=== PATIENT | male | born 1955 | race Hispanic/Latino ===

== ENCOUNTER 2018-01-29 10:03 | Observation (INO) | payer BC ==
[~2018-01-29] VITALS: Ht 172.7 cm; Wt 69.9 kg
[2018-01-29 11:44] LABS: BASOPHILS % 0.2 % (0.0-1.0); HEMATOCRIT 42.1 % (38.2-49.6); HEMOGLOBIN 13.4 g/dL (14.0-18.0); LYMPHOCYTES # (AUTO) 0.6 (1.0-3.2); LYMPHOCYTES % 3.5 % (18.0-39.1); MEAN CORPUSCULAR HEMOGLOBIN 21.4 pg (28-32); MEAN CORPUSCULAR HGB CONC 31.8 g/dL (31-35); MEAN CORPUSCULAR VOLUME 67.1 fL (81-99); MONOCYTES # (AUTO) 0.5 (0.2-0.8); MONOCYTES % 2.8 % (4.4-11.3); NEUTROPHILS # (AUTO) 16.4 (2.1-6.9); PLATELET COUNT 338 x10e3/uL (140-360); RED BLOOD COUNT 6.27 x10e6/uL (4.3-5.7); RED CELL DISTRIBUTION WIDTH 17.5 % (11.7-14.4)
[2018-01-29 11:47] LABS: INR 0.92; PARTIAL THROMBOPLASTIN TIME 25.6 seconds (23.8-35.5); PROTHROMBIN TIME 13.2 seconds (11.9-14.5)
[2018-01-29 11:53] LABS: CLARITY,URINE CLEAR (CLEAR); COLOR,URINE YELLOW (YELLOW)
[2018-01-29 11:54] LABS: KETONES,URINE NEGATIVE (NEGATIVE); LEUKOCYTE ESTERASE ,URINE NEGATIVE (NEGATIVE); NITRITE,URINE NEGATIVE (NEGATIVE); PROTEIN,URINE DIPSTICK 1+ (NEGATIVE); URINE UROBILINOGEN 0.2 mg/dL (0.2 - 1)
[2018-01-29 11:55] LABS: BILIRUBIN,URINE NEGATIVE (NEGATIVE)
[2018-01-29 11:56] LABS: ALANINE AMINOTRANSFERASE 13 IU/L (0-55); ALBUMIN 4.3 g/dL (3.5-5.0); ALBUMIN/GLOBULIN RATIO 1.3 (0.8-2.0); ALKALINE PHOSPHATASE 73 IU/L (40-150); AMYLASE 51 U/L (25-125); ANION GAP 15.7 mmol/L (8-16); BLOOD UREA NITROGEN 14 mg/dL (7-26); BUN/CREATININE RATIO 14 (6-25); CALCIUM 9.3 mg/dL (8.4-10.2); CARBON DIOXIDE 23 mmol/L (22-29); CHLORIDE 102 mmol/L (98-107); CREATINE KINASE 101 IU/L (30-200); CREATININE, SERUM 0.99 mg/dL (0.72-1.25); EST GLOMERULAR FILTRATION RATE > 60 ML/MIN (60-); GLUCOSE 152 mg/dL (74-118); LIPASE 10 U/L (8-78); MAGNESIUM 2.2 MG/DL (1.3-2.1); POTASSIUM 3.7 mmol/L (3.5-5.1); SODIUM 137 mmol/L (136-145)
[2018-01-29 12:00] LABS: BACTERIA,URINE RARE /HPF; EPITHELIAL CELLS,URINE RARE /LPF; RBC,URINE 0-5 /HPF (0-5); WBC,URINE (MAN) 0-5 /HPF (0-5)
[2018-01-29 12:01] LABS: YEAST,URINE RARE
--- NOTE | 2018-01-29 14:07 | Diagnostic Imaging Report ---
Two frontal view of the chest. HISTORY: Abdominal pain COMPARISON: None available. DISCUSSION: Portable technique, limits sensitivity of the exam. The left costophrenic angle is not entirely included. Overlying monitoring leads. Tubes/Lines: None Lungs and pleura: The lungs appear well inflated. No evidence of a consolidative pneumonia or pulmonary alveolar edema. No definite pleural effusion or pneumothorax is identified. Heart and mediastinum: The cardiac silhouette appears unremarkable. Mild prominence of the central pulmonary, likely accentuated by positioning. Bones: No acute osseous lesion is identified, given this limited exam. IMPRESSION: No acute radiographic abnormality, when allowing for the technique. Signed by: Dr. Stewart Solis D.O., M.M.M. on 01/29/2018 2:03 PM
[2018-01-29] MEDS ORDERED: SODIUM CHLORIDE 0.9% 50ML 50 ML ONE (16:09)
[2018-01-29] MEDS ORDERED: IOPAMIDOL 370 MG/ML 200 ML INFUS..BTL INJ ONE (16:09)
--- NOTE | 2018-01-29 17:40 | Diagnostic Imaging Report ---
ADDENDUM #1 EXAM: CT of the abdomen and pelvis WITH contrast HISTORY: Abdominal pain, additional history provided of pain since 5:00 AM this morning with an elevated white blood cell count and left shift COMPARISON: None. TECHNIQUE: The abdomen and pelvis were scanned utilizing a multidetector helical scanner. Coronal and sagittal reformats are provided. PROTOCOL: Routine IV CONTRAST: 100 cc of Isovue-370. ORAL CONTRAST: Water RADIATION DOSE: Total DLP: 314.78 mGy*cm Estimated effective dose: (DLP x 0.015 x size factor) Dose modulation, iterative reconstruction, and/or weight based adjustment of the mA/kV was utilized to reduce the radiation dose to as low as reasonably achievable. COMPLICATIONS: None FINDINGS: LOWER THORAX: Moderate cardiomegaly. Mild bilateral dependent atelectasis. HEPATOBILIARY: No focal hepatic lesions. No biliary ductal dilatation. The gallbladder is unremarkable. SPLEEN: No splenomegaly. PANCREAS: No focal masses or ductal dilatation. ADRENALS: No discrete adrenal nodule. KIDNEYS/URETERS: No hydronephrosis, stones, or solid mass lesions. PELVIC ORGANS/BLADDER: The urinary bladder is partially decompressed. PERITONEUM / RETROPERITONEUM: No free air or fluid. LYMPH NODES: No pathologically enlarged lymph node. VESSELS: Scattered atherosclerotic vascular calcifications, including the coronary arteries. GI TRACT: No distention or wall thickening identified. A 1.2 cm calcific density near the base of the appendix. No enlargement of the appendix or surrounding inflammatory changes. BONES: No aggressive osseous lesion or acute fracture. SOFT TISSUES: Unremarkable. IMPRESSION: 1. Appendicolith at the base of the appendix, but no enlargement of the appendix or surrounding inflammatory changes. In the appropriate setting, early appendicitis may still be a consideration. 2. No acute CT intra-abdominal or intrapelvic abnormality. 3. Moderate cardiomegaly. Discussed with Dr. Yu via phone on January 29, 2018 at 1740. Signed by: Dr. Stewart Solis D.O., M.M.M. on 01/29/2018 5:59 PM ORIGINAL REPORT EXAM: CT of the abdomen and pelvis WITH contrast HISTORY: Abdominal pain COMPARISON: None. TECHNIQUE: The abdomen and pelvis were scanned utilizing a multidetector helical scanner. Coronal and sagittal reformats are provided. PROTOCOL: Routine IV CONTRAST: 100 cc of Isovue-370. ORAL CONTRAST: Water RADIATION DOSE: Total DLP: 314.78 mGy*cm Estimated effective dose: (DLP x 0.015 x size factor) Dose modulation, iterative reconstruction, and/or weight based adjustment of the mA/kV was utilized to reduce the radiation dose to as low as reasonably achievable. COMPLICATIONS: None FINDINGS: LOWER THORAX: Moderate cardiomegaly. Mild bilateral dependent atelectasis. HEPATOBILIARY: No focal hepatic lesions. No biliary ductal dilatation. The gallbladder is unremarkable. SPLEEN: No splenomegaly. PANCREAS: No focal masses or ductal dilatation. ADRENALS: No discrete adrenal nodule. KIDNEYS/URETERS: No hydronephrosis, stones, or solid mass lesions. PELVIC ORGANS/BLADDER: The urinary bladder is partially decompressed. PERITONEUM / RETROPERITONEUM: No free air or fluid. LYMPH NODES: No pathologically enlarged lymph node. VESSELS: Scattered atherosclerotic vascular calcifications, including the coronary arteries. GI TRACT: No distention or wall thickening identified. A 1.2 cm calcific density near the base of the appendix. No enlargement of the appendix or surrounding inflammatory changes. BONES: No aggressive osseous lesion or acute fracture. SOFT TISSUES: Unremarkable. IMPRESSION: 1. Appendicolith at the base of the appendix, but no enlargement of the appendix or surrounding inflammatory changes. 2. No acute CT intra-abdominal or intrapelvic abnormality. 3. Moderate cardiomegaly. Signed by: Dr. Stewart Solis D.O., M.M.M. on 01/29/2018 5:37 PM
[2018-01-29] MEDS ORDERED: MORPHINE SULFATE 2 MG/ML SYR IV PRN (18:30)
[2018-01-29] MEDS ORDERED: DEXTROSE 50% SYRINGE 50 ML IV PRN (18:30)
--- OUTSIDE RECORDS SUMMARY | 2018-01-29 18:49 | XMS REPORT ---
[facility] Address Unknown Phone Unavailable Care Team Providers Care Charter Coordinator Name Role Phone Linda PULIDO Unavailable Unavailable Problems This patient has no known problems. Allergies, Adverse Reactions, Alerts This patient has no known allergies or adverse reactions. Medications This patient has no known medications. 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 TECHNIQUE: The abdomen and pelvis were scanned utilizing a multidetector helical scanner. Coronal and sagittal reformats are provided. PROTOCOL: Routine IV CONTRAST: 100 cc of Isovue-370. ORAL CONTRAST: Water RADIATION DOSE: Total DLP: 314.78 mGy*cm Estimated effective dose: (DLP x 0.015 x size factor) Dose modulation, iterative reconstruction, and/or weight based adjustment of the mA/kV was utilized to reduce the radiation dose to as low as reasonably achievable. COMPLICATIONS: None FINDINGS: LOWER THORAX: Moderate cardiomegaly. Mild bilateral dependent atelectasis. HEPATOBILIARY: No focal hepatic lesions. No biliary ductal dilatation. The gallbladder is unremarkable. SPLEEN: No splenomegaly. PANCREAS: No focal masses or ductal dilatation. ADRENALS: No discrete adrenal nodule. KIDNEYS/URETERS: No hydronephrosis, stones, or solid mass lesions. PELVIC ORGANS/BLADDER: The urinary bladder is partially decompressed. PERITONEUM / RETROPERITONEUM: No free air or fluid. LYMPH NODES: No pathologically enlarged lymph node. VESS ELS: Scattered atherosclerotic vascular calcifications, including the coronary arteries. GI TRACT: No distention or wall thickening identified. A 1.2 cm calcific density near the base of the appendix. No enlargement of the appendix or surrounding inflammatory changes. BONES: No aggressive osseous lesion or acute fracture. SOFT TISSUES: Unremarkable. IMPRESSION: 1. Appendicolith at the base of the appendix, but no enlargement of the appendix or surrounding inflammatory changes. In the appropriate setting, early appendicitis may still be a consideration. 2. No acute CT intra- abdominal or intrapelvic abnormality. 3. Moderate cardiomegaly. Discussed with Dr. Pulido via phone on January 29, 2018 at 1740. Signed by: Dr. Candida Solis D.O., M.M.M. on 01/29/2018 5:59 PM ORIGINAL REPORT EXAM: CT of the abdomen and pelvis WITH contrast HISTORY: Abdominal pain COMPARISON: None. TECHNIQUE: The abdomen and pelvis were scanned utilizing a multidetector helical scanner. Coronal and sagittal reformats are provided. PROTOCOL: Routine IV CONTRAST: 100 cc of Isovue-370. ORAL CONTRAST: Water RADIATION DOSE: Total DLP: 314.78 mGy*cm Estimated effective dose: (DLP x 0.015 x size factor) Dose modulation, iterative reconstruction, and/or weight based adjustment of the mA/kV was utilized to reduce the radiation dose to as low as reasonably achievable. COMPLICATIONS: None FINDINGS: LOWER THORAX: Moderate c ardiomegaly. Mild bilateral dependent atelectasis. HEPATOBILIARY: No focal hepatic lesions. No biliary ductal dilatation. The gallbladder is unremarkable. SPLEEN: No splenomegaly. PANCREAS: No focal masses or ductal dilatation. ADRENALS: No discrete adrenal nodule. KIDNEYS/URETERS: No hydronephrosis, stones, or solid mass lesions. PELVIC ORGANS/BLADDER: The urinary bladder is partially decompressed. PERITONEUM / RETROPERITONEUM: No free air or fluid. LYMPH NODES: No pathologically enlarged lymph node. VESSELS: Scattered atherosclerotic vascular calcifications, including the coronary arteries. GI TRACT: No distention or wall thickening identified. A 1.2 cm calcific density near the base of the appendix. No enlargement of the appendix or surrounding inflammatory changes. BONES: No aggressive osseous lesion or acute fracture. SOFT TISSUES: Unremarkable. IMPRESSION: 1. Appendicolith at the base of the appendix, but no enlargement of the appendix or surrounding inflammatory changes. 2. No acute CT intra-abdominal or intrapelvic abnormality. 3. Moderate cardiomegaly. Signed by: Dr. Candida Solis D.O., M.M.M. on 01/29/2018 5:37 PM Dictated By: CANDIDA SOLIS DO [id number] Transcribed By: YOLANDA on 01/29/18 [id number] COPY TO: NIA MACIAS NP CHEST SINGLE (PORTABLE) 2018-01-29 14:00:00 [place] [address] Patient Name: MEHREEN KILGORE MR #: [id number] : 1955 Age/Sex: 63/M Req #: [id number] Adm Physician: Ordered by: NIA MACIAS NP Report #: [id number] Location: Room/Bed: Procedure: [id number] DX/CHEST SINGLE (PORTABLE) Exam Date: 01/29/18 Exam Time: 1120 REPORT STATUS: Signed Two frontal view of the chest. HISTORY: Abdominal pain COMPARISON: None available. DISCUSSION: Portable technique, limits sensitivity of the exam. The left costophrenic angle is not entirely included. Overlying monitoring leads. Tubes/Lines: None Lungs and pleura: The lungs appear well inflated. No evidence of a consolidative pneumonia or pulmonary alveolar edema. No definite pleural effusion or pneumo thorax is identified. Heart and mediastinum: The cardiac silhouette appears unremarkable. Mild prominence of the central pulmonary, likely accentuated by positioning. Bones: No acute osseous lesion is identified, given this limited exam. IMPRESSION: No acute radiographic abnormality, when allowing for the technique. Signed by: Dr. Candida Solis D.O., M.M.M. on 01/29/2018 2:03 PM Dictated By: CANDIDA SOLIS DO 02 Transcribed By: YOLANDA on 01/29/181402 COPY TO: NIA MACIAS NP
[2018-01-29] MEDS: PIPER-TAZ 3.375 GM 50 ML IV SCH (19:41)
[2018-01-29] MEDS: SODIUM CHLORIDE 0.9% 1000ML 1,000 ML IV SCH ×2 (19:41→23:02)
[2018-01-29 20:43] VITALS: BP 141/69
[2018-01-29 20:45] VITALS: BP 141/69
[2018-01-29] MEDS: INSULIN REGULAR, HUMAN 100 UNIT/1 ML 3ML VIAL SQ SCH (21:00)
[2018-01-29] MEDS ORDERED: PIPER-TAZ 3.375 GM / NS 50ML IV SCH (22:00)
[2018-01-29 23:07] VITALS: BP 141/69
[2018-01-30 00:12] VITALS: BP 132/74
[2018-01-30 04:37] VITALS: BP 137/74
[2018-01-30] MEDS: PIPER-TAZ 3.375 GM 50 ML IV SCH ×3 (05:00→20:50)
[2018-01-30 05:38] LABS: BASOPHILS % 0.2 % (0.0-1.0); EOSINOPHILS % 0.1 % (0.0-6.0); HEMATOCRIT 40.1 % (38.2-49.6); HEMOGLOBIN 12.8 g/dL (14.0-18.0); LYMPHOCYTES # (AUTO) 2.2 (1.0-3.2); LYMPHOCYTES % 15.7 % (18.0-39.1); MEAN CORPUSCULAR HEMOGLOBIN 21.2 pg (28-32); MEAN CORPUSCULAR HGB CONC 31.9 g/dL (31-35); MEAN CORPUSCULAR VOLUME 66.5 fL (81-99); MONOCYTES # (AUTO) 1.2 (0.2-0.8); MONOCYTES % 8.8 % (4.4-11.3); NEUTROPHILS # (AUTO) 10.4 (2.1-6.9); NEUTROPHILS % 74.8 % (38.7-80.0); PLATELET COUNT 326 x10e3/uL (140-360); RED BLOOD COUNT 6.03 x10e6/uL (4.3-5.7)
[2018-01-30 05:41] LABS: ANION GAP 12.7 mmol/L (8-16); BLOOD UREA NITROGEN 12 mg/dL (7-26); BUN/CREATININE RATIO 12 (6-25); CALCIUM 8.9 mg/dL (8.4-10.2); CARBON DIOXIDE 25 mmol/L (22-29); CHLORIDE 104 mmol/L (98-107); CREATININE, SERUM 1.02 mg/dL (0.72-1.25); EST GLOMERULAR FILTRATION RATE > 60 ML/MIN (60-); GLUCOSE 126 mg/dL (74-118); POTASSIUM 3.7 mmol/L (3.5-5.1); SODIUM 138 mmol/L (136-145)
[2018-01-30] MEDS: INSULIN REGULAR, HUMAN 100 UNIT/1 ML 3ML VIAL SQ SCH ×4 (07:30→20:32)
[2018-01-30] MEDS ORDERED: ONDANSETRON HCL INJ 2 MG/ML VIAL IV PRN (08:00)
[2018-01-30] MEDS ORDERED: HYDRALAZINE HCL 20 MG/ML VIAL IV PRN (08:00)
[2018-01-30] MEDS ORDERED: ACETAMINOPHEN 325 MG TAB PO PRN (08:00)
[2018-01-30] MEDS ORDERED: FLUCONAZOLE 200 MG/100 ML 100 ML IV ONE (08:00)
[2018-01-30] MEDS ORDERED: COZAAR25 MG PO (08:19)
[2018-01-30] MEDS ORDERED: PRAVASTATIN SOD10 MG PO (08:19)
[2018-01-30] MEDS ORDERED: METFORMIN HCL500 MG PO (08:19)
--- NOTE | 2018-01-30 08:41 | Consultation ---
DATE OF CONSULTATION: January 30, 2018 REFERRING PHYSICIAN: Dr. Hess HISTORY: Patient is a 63-year-old male who presents with complaints of abdominal pain. Says the pain started yesterday morning. Says he ate some fish the night before and thinks that it may have caused the pain, came to the emergency room where he was evaluated. CT of the abdomen which reveals a large appendicolith, but no inflammation. Patient says his pain has gone completely now. He has no nausea or vomiting, no diarrhea, no fever. PAST MEDICAL HISTORY: Unremarkable. He has no chronic medical problems. MEDICATIONS: There were no current medications. ALLERGIES: NO KNOWN ALLERGIES. PAST SURGICAL HISTORY: Only previous surgery was on his right arm. FAMILY HISTORY: Noncontributory. SOCIAL HISTORY: The patient does not smoke cigarettes or drink alcohol. REVIEW OF SYSTEMS: As stated above. He has not had any fever. PHYSICAL EXAMINATION: GENERAL: The patient is awake and alert, in no distress. VITAL SIGNS: Normal. HEENT: Reveals no scleral icterus. NECK: Has no masses. LUNGS: Equal breath sounds are clear bilaterally. CARDIAC: Regular rate and rhythm with no murmur. ABDOMEN: Soft. There is no tenderness, no mass, no signs of peritonitis, no organomegaly. EXTREMITIES: Have no edema. Pulses are palpable. NEUROLOGIC: Intact. LAB TESTS: The white blood cell count is 17.6 on arrival, repeat today is 13.9. Hemoglobin and hematocrit are normal. Chemistries essentially normal with normal liver function tests. Urinalysis also is essentially normal. ASSESSMENT: Gkssv-[id number]-fqqh-old male with abdominal pain that has resolved. He has no symptoms at this time. Large appendicolith was seen on computerized tomography scan, but no signs of inflammation. No intervention is needed at this time, and I will start the patient on a diet. If he tolerates diet and no recurrence of his pain, he likely can be discharged soon. Thank you for asking me to see Mr. Alvarado. Job#: [id number]
[2018-01-30] MEDS ORDERED: FLUCONAZOLE 100 MG TAB PO SCH (09:00)
[2018-01-30] MEDS: LOSARTAN POTASSIUM 100 MG TAB PO SCH (09:16)
[2018-01-30 11:26] VITALS: BP 126/74
[2018-01-30 15:08] VITALS: BP 138/69
[2018-01-30] MEDS: FAMOTIDINE 20 MG TAB PO SCH (16:25)
[2018-01-30] MEDS ORDERED: MORPHINE SULFATE INJ 4 MG/ML INJ IV PRN (16:30)
[2018-01-30 20:00] VITALS: BP 157/88
[2018-01-30] MEDS: PRAVASTATIN 20 MG TAB PO SCH (20:50)
[2018-01-30] MEDS ORDERED: PRAVASTATIN 20 MG TAB PO SCH (21:00)
[2018-01-31] VITALS: BP 129/72
[2018-01-31 04:00] VITALS: BP 120/69
[2018-01-31 04:03] LABS: BASOPHILS # (AUTO) 0.1 (0.0-0.1); BASOPHILS % 0.3 % (0.0-1.0); EOSINOPHILS % 0.1 % (0.0-6.0); HEMATOCRIT 38.7 % (38.2-49.6); HEMOGLOBIN 12.7 g/dL (14.0-18.0); LYMPHOCYTES # (AUTO) 1.9 (1.0-3.2); LYMPHOCYTES % 12.5 % (18.0-39.1); MEAN CORPUSCULAR HEMOGLOBIN 21.5 pg (28-32); MEAN CORPUSCULAR HGB CONC 32.8 g/dL (31-35); MEAN CORPUSCULAR VOLUME 65.6 fL (81-99); MONOCYTES # (AUTO) 1.4 (0.2-0.8); MONOCYTES % 9.3 % (4.4-11.3); NEUTROPHILS # (AUTO) 11.5 (2.1-6.9); NEUTROPHILS % 77.3 % (38.7-80.0); PLATELET COUNT 307 x10e3/uL (140-360); RED CELL DISTRIBUTION WIDTH 16.7 % (11.7-14.4)
[2018-01-31 04:36] LABS: ANION GAP 12.6 mmol/L (8-16); BLOOD UREA NITROGEN 11 mg/dL (7-26); BUN/CREATININE RATIO 13 (6-25); CALCIUM 9.1 mg/dL (8.4-10.2); CARBON DIOXIDE 22 mmol/L (22-29); CHLORIDE 107 mmol/L (98-107); CREATININE, SERUM 0.86 mg/dL (0.72-1.25); EST GLOMERULAR FILTRATION RATE > 60 ML/MIN (60-); GLUCOSE 126 mg/dL (74-118); MAGNESIUM 2.4 MG/DL (1.3-2.1); POTASSIUM 3.6 mmol/L (3.5-5.1); SODIUM 138 mmol/L (136-145)
[2018-01-31] MEDS: PIPER-TAZ 3.375 GM 50 ML IV SCH ×3 (05:32→21:01)
[2018-01-31 06:31] LABS: FOLATE 13.5 ng/mL (7.0-15.4)
[2018-01-31 07:12] LABS: FERRITIN 168.09 ng/mL (21.81-274.66)
[2018-01-31] MEDS: INSULIN REGULAR, HUMAN 100 UNIT/1 ML 3ML VIAL SQ SCH ×4 (07:30→21:00)
[2018-01-31] MEDS: FAMOTIDINE 20 MG TAB PO SCH ×2 (07:30→17:22)
[2018-01-31 07:32] VITALS: BP 131/69
[2018-01-31] MEDS: LOSARTAN POTASSIUM 100 MG TAB PO SCH (08:55)
[2018-01-31] MEDS: FLUCONAZOLE 100 MG TAB PO SCH (08:56)
[2018-01-31 11:45] VITALS: BP 137/71
[2018-01-31] MEDS ORDERED: PROPOFOL IV EMULSION 10 MG/ML 20 ML VIAL ONE (15:12)
[2018-01-31] MEDS ORDERED: FENTANYL CITRATE/PF 100MCG/2 ML INJ ONE (15:12)
[2018-01-31] MEDS ORDERED: MIDAZOLAM HCL 2 MG/2 ML VIAL ONE (15:12)
--- NOTE | 2018-01-31 16:58 | Operative Report ---
DATE OF PROCEDURE: January 31, 2018 REFERRING PHYSICIAN: Dr. Sarah Hess. PROCEDURE PERFORMED: Esophagogastroduodenoscopy with biopsies. INDICATIONS FOR ESOPHAGOGASTRODUODENOSCOPY: Abdominal pain, positive occult blood in stool. MEDICATION: Patient was done under MAC. Please see anesthesiologist's note. PROCEDURE: With patient in the left lateral decubitus position, the flexible fiberoptic Olympus gastroscope was introduced into the esophagus under direct visualization without any difficulty. There was some patchy erythema noted in the distal esophagus. Minute tongues of velvety red mucosa were noted to extend proximally from the GE junction, and biopsies were obtained to rule out Montgomery's. The scope was then advanced with ease into the stomach. Mucosa overlying the antrum revealed some patchy intense erythema and low-grade to moderate edema, and biopsies were obtained and sent to stain for H. pylori. There were some atrophic changes noted in the distal body, and biopsies were obtained to rule out atrophic gastritis. The pylorus was intubated with ease, and the scope was advanced all the way to the 2nd portion of the duodenum. The scope was then withdrawn slowly. Mucosa overlying the proximal 2nd portion and the duodenal bulb appeared to be within normal limits. The scope was then withdrawn back into the stomach and retroflexed, and mucosa overlying the fundus and the cardia appeared to be within normal limits. The scope was then straightened out. The scope was subsequently withdrawn. Patient tolerated procedure well. IMPRESSION: 1. Distal esophagitis, mild. 2. Rule out Montgomery's esophagus. 3. Gastritis biopsied. Biopsies sent to stain for H. pylori. 4. Distal rule out atrophic gastritis, distal body. PLAN: Follow up histology. Initiate Protonix 40 mg 1 p.o. q.a.m. a.c. Patient will need a colonoscopy, and this can be done on an outpatient basis. Job#: [id number] EV cc:SARAH HESS MD
[2018-01-31] MEDS ORDERED: SODIUM CHLORIDE 0.9% 250ML 250 ML ONE (17:14)
[2018-01-31 18:01] VITALS: BP 120/70
[2018-01-31 20:00] VITALS: BP 136/68
[2018-01-31] MEDS: PRAVASTATIN 20 MG TAB PO SCH (21:01)
[2018-02-01 01:45] VITALS: BP 130/66
[2018-02-01 04:44] LABS: ANION GAP 13.5 mmol/L (8-16); BLOOD UREA NITROGEN 12 mg/dL (7-26); BUN/CREATININE RATIO 12 (6-25); CALCIUM 9.2 mg/dL (8.4-10.2); CARBON DIOXIDE 22 mmol/L (22-29); CHLORIDE 105 mmol/L (98-107); CREATININE, SERUM 0.99 mg/dL (0.72-1.25); EST GLOMERULAR FILTRATION RATE > 60 ML/MIN (60-); GLUCOSE 129 mg/dL (74-118); MAGNESIUM 2.3 MG/DL (1.3-2.1); POTASSIUM 3.5 mmol/L (3.5-5.1); SODIUM 137 mmol/L (136-145)
[2018-02-01 05:00] VITALS: BP 166/80
[2018-02-01] MEDS: PIPER-TAZ 3.375 GM 50 ML IV SCH ×3 (05:04→21:00)
[2018-02-01 05:12] LABS: BASOPHILS # (AUTO) 0.1 (0.0-0.1); BASOPHILS % 0.4 % (0.0-1.0); EOSINOPHILS # (AUTO) 0.1 (0.0-0.4); EOSINOPHILS % 0.4 % (0.0-6.0); HEMATOCRIT 38.2 % (38.2-49.6); HEMOGLOBIN 12.6 g/dL (14.0-18.0); LYMPHOCYTES # (AUTO) 2.3 (1.0-3.2); LYMPHOCYTES % 16.5 % (18.0-39.1); MEAN CORPUSCULAR HEMOGLOBIN 21.5 pg (28-32); MEAN CORPUSCULAR VOLUME 65.3 fL (81-99); MONOCYTES # (AUTO) 1.2 (0.2-0.8); MONOCYTES % 8.3 % (4.4-11.3); NEUTROPHILS # (AUTO) 10.4 (2.1-6.9); PLATELET COUNT 312 x10e3/uL (140-360); RED BLOOD COUNT 5.85 x10e6/uL (4.3-5.7); RED CELL DISTRIBUTION WIDTH 16.6 % (11.7-14.4)
[2018-02-01] MEDS: PANTOPRAZOLE SOD 40 MG TABEC PO SCH (07:20)
[2018-02-01] MEDS: INSULIN REGULAR, HUMAN 100 UNIT/1 ML 3ML VIAL SQ SCH ×4 (07:30→21:00)
[2018-02-01 08:00] VITALS: BP 158/75
[2018-02-01] MEDS ORDERED: SODIUM CHLORIDE 0.9% 50ML 50 ML ONE (09:51)
[2018-02-01] MEDS ORDERED: IOPAMIDOL 370 MG/ML 200 ML INFUS..BTL INJ ONE (09:52)
[2018-02-01] MEDS: FLUCONAZOLE 100 MG TAB PO SCH (09:58)
--- NOTE | 2018-02-01 09:58 | Diagnostic Imaging Report ---
PROCEDURE: CT ABDOMEN AND PELVIS WITH CONTRAST TECHNIQUE: The abdomen and pelvis were scanned utilizing a multidetector helical scanner from the diaphragm to the lesser trochanter after the IV administration of 100 cc of Isovue 370 and the oral administration of 900 cc of water. Coronal and sagittal multiplanar reformations were obtained. COMPARISON: CT Abdomen/Pelvis 01/29/18 INDICATIONS: ABDOMEN PAIN FINDINGS: LOWER THORAX: Moderate cardiomegaly. Patchy dependent atelectasis. HEPATOBILIARY: No focal hepatic lesions. No biliary ductal dilatation. Interval development of mild stranding surrounding the gallbladder without wall thickening or radiopaque stone. SPLEEN: No splenomegaly. PANCREAS: No focal masses or ductal dilatation. ADRENALS: No adrenal nodule. KIDNEYS/URETERS: No hydronephrosis, stones, or solid mass lesions. PELVIC ORGANS/BLADDER: The urinary bladder is partially decompressed. PERITONEUM / RETROPERITONEUM: No free air or fluid. LYMPH NODES: No pathologically enlarged lymph node. VESSELS: Scattered atherosclerotic vascular calcifications within the abdominal aorta and branch vessel. GI TRACT: No distention or wall thickening identified. Appendicolith at the base of hte appendix is again noted. Interval development of mild dilatation of the appendix measuring up to 8 mm with periappendiceal mild stranding. No surrounding collection or free air. BONES: No aggressive osseous lesion or acute fracture. SOFT TISSUES: Unremarkable. IMPRESSION: Findings of early appendicitis with new mild appendiceal dilatation measuring up to 8 mm, surrounding stranding, and previously noted appendicolith. No evidence of free air or drainable fluid collection. Mild stranding around the gallbladder without evidence of wall thickening or stone is non-specific. If clinically indicated, right upper quadrant ultrasound may be considered for further evaluation. Dictated by: JOSHUA PEARCE M.D. on 02/01/2018 at 10:06 Electronically approved by: JOSHUA PEARCE M.D. on 02/01/2018 at 10:06
[2018-02-01] MEDS: LOSARTAN POTASSIUM 100 MG TAB PO SCH (09:59)
[2018-02-01 12:22] VITALS: BP 175/79
--- NOTE | 2018-02-01 14:16 | Consultation ---
DATE OF CONSULTATION: February 01, 2018 REASON FOR CONSULTATION: Fever, chills, abdominal pain. HISTORY OF PRESENT ILLNESS: This patient, who is a 63-year-old male, came into the emergency room on January 29 with abdominal pain, nausea and vomiting. The patient started having abdominal pain the day of admission with some fever. He came to the emergency room, and CT showed a large appendicolith with no inflammation. Patient was admitted. He was seen by GI. He was seen by surgery. The patient was admitted and started on antibiotic. The patient, however, started to have abdominal pain today and fever and chills, so infectious disease was consulted. The patient is currently lying in bed comfortably. PAST MEDICAL HISTORY: Denies. PAST SURGICAL HISTORY: Denies. ALLERGIES: NKA. SOCIAL HISTORY: Does not smoke. No drug abuse or alcohol abuse. FAMILY HISTORY: Noncontributory. His CT scan which was done showed early appendicitis with mild appendiceal dilatation now compared to CT on January 29. At that time, it showed only an appendicolith, but no enlargement of the appendix. LABORATORY DATA: White count is 14.06. Hemoglobin 12.7. Sodium 137, potassium 3.5, creatinine 0.99. Blood cultures are no growth, and urine cultures are no growth. MEDICATIONS: He is currently on Zosyn. PHYSICAL EXAMINATION GENERAL: He is currently alert and oriented, does not seem to be in acute distress. VITALS: Stable, currently afebrile. HEENT: Not icteric. NECK: Supple. CHEST: Clear. HEART: S1, S2. No murmur. ABDOMEN: Soft. Diffuse discomfort. IMPRESSION: I think the patient is having appendicitis at the present time. Agree with Zosyn. Will discuss with surgery. Continue with the same. Job#: [id number]
[2018-02-01] MEDS ORDERED: BUPIVACAINE HCL 0.5% INJ 30 ML VIAL INJ ONE (14:33)
[2018-02-01] MEDS ORDERED: MORPHINE SULFATE 2 MG/ML SYR IV PRN (16:30)
[2018-02-01] MEDS ORDERED: MORPHINE SULFATE 5 MG/ML VIAL IV PRN (16:30)
[2018-02-01] MEDS ORDERED: HYDROCODONE/APAP 5MG-325MG TAB PO PRN (16:30)
[2018-02-01] MEDS ORDERED: ONDANSETRON HCL INJ 2 MG/ML VIAL IV PRN (16:30)
--- NOTE | 2018-02-01 17:05 | Operative Report ---
DATE OF PROCEDURE: February 01, 2018 PREOPERATIVE DIAGNOSIS: Acute appendicitis. POSTOPERATIVE DIAGNOSES 1. Acute appendicitis. 2. Acute cholecystitis with cholelithiasis. PROCEDURES 1. Diagnostic laparoscopy. 2. Laparoscopic appendectomy. 3. Laparoscopic cholecystectomy. 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 ANESTHESIA: General. INDICATIONS AND FINDINGS: The patient is a 63-year-old male admitted to the hospital with complaint of abdominal pain. Workup revealed a large appendicolith. His pain disappeared completely, and then it recurred. Followup CT scan of the abdomen revealed findings suggestive of acute appendicitis but also some inflammation around the gallbladder. At surgery, the patient's gallbladder was inflamed at its tip. The gallbladder was acutely inflamed with adherent omentum over the gallbladder containing multiple small stones. Cystic duct was about 3 mm in diameter. Common bile duct was about 6 mm in diameter. Liver, stomach and lower abdomen all appeared normal. TECHNIQUE: After adequate general endotracheal anesthesia, with the patient in the supine position, the abdomen was prepped and draped in a sterile fashion with Cresencio solution. Skin in the umbilicus was infiltrated with 0.5% Marcaine. Incision was made in the umbilicus. Abdominal wall was elevated, and the Veress needle was introduced. Pneumoperitoneum was then created. A 10-mm trocar and cannula were then passed through the umbilical wound. Laparoscopic camera was introduced. Initial laparoscopy revealed no free fluid. The appendix was seen and appeared to be inflamed at its tip. A 12-mm trocar and cannula were placed suprapubically, and a 5-mm trocar and cannula were placed in the right upper quadrant. Examination of the rest of the abdomen revealed inflammatory process in the right upper quadrant at the area of the liver. There was found be adherent omentum over the acutely inflamed gallbladder. Appendectomy was done first. The cecum was elevated. A window was created in the base of the appendix and the mesoappendix. The base of the appendix was divided close to the cecum with the Endo-BROOKE stapler. Mesoappendix was also divided with the Endo-BROOKE stapler, freeing the appendix completely. The appendix was placed into an Endo pouch and brought out through the suprapubic cannula. Care was taken that it did not touch the abdominal wall. The area of the appendectomy was inspected for hemostasis, which was seen to be adequate. Two 5-mm trocars and cannulas were then placed in the right upper quadrant. The gallbladder was tense and inflamed. It was decompressed with a needle. Fundus was then grasped and retracted superiorly. Remaining adherent omentum was dissected away from the gallbladder. The neck of the gallbladder was grasped and retracted laterally. Peritoneum over the neck of the gallbladder was incised. The gallbladder-cystic duct junction was dissected free. Cystic artery was also dissected free. The neck of the gallbladder was completely dissected free. Cystic artery was divided between Hemoclips close to the gallbladder. Cystic duct was milked back towards the gallbladder and then divided between Hemoclips, with 3 clips being left on the common bile duct side. The gallbladder was dissected free from the liver using scissors and electrocautery. Once it was entirely free, it was placed into an Endo pouch and brought out through the epigastric cannula. It contained multiple small stones. Gallbladder bed was inspected for hemostasis, which was seen to be adequate. It was irrigated with saline. All fluid aspirated and inspected for hemostasis, which was seen to be adequate. Instruments and cannulas were then removed. Pneumoperitoneum was evacuated. Wounds were then closed. Fascia in the umbilical and epigastric wound closed with #0 Vicryl. The fascia in the suprapubic wound was also closed with #0 Vicryl. Skin to all wounds closed with tory. Sterile dressing was applied. The patient tolerated the procedure well. Estimated blood loss was 30 mL. There were no complications. All counts were correct. Patient was taken to the recovery room in satisfactory condition. Job#: [id number] cc:MD ERASMO DAY MD ZAHER SHEBIB, MD
[2018-02-01 17:35] VITALS: BP 187/81
[2018-02-01] MEDS ORDERED: MIDAZOLAM HCL 2 MG/2 ML VIAL ONE (17:40)
[2018-02-01] MEDS ORDERED: MORPHINE SULFATE INJ 10 MG/ML ONE (17:40)
[2018-02-01] MEDS ORDERED: FENTANYL CITRATE/PF 100MCG/2 ML INJ ONE (17:40)
[2018-02-01] MEDS: DEXTROSE 5%/LACTATED RINGERS 1,000 ML IV SCH (18:03)
[2018-02-01 20:00] VITALS: BP 187/81
[2018-02-01] MEDS: PRAVASTATIN 20 MG TAB PO SCH (21:00)
[2018-02-02] VITALS (8 sets, daily range): BP systolic 128–153; BP diastolic 61–79
[2018-02-02] MEDS: DEXTROSE 5%/LACTATED RINGERS 1,000 ML IV SCH ×4 (02:32→20:57)
[2018-02-02 05:09] LABS: BASOPHILS % 0.2 % (0.0-1.0); EOSINOPHILS % 0.1 % (0.0-6.0); HEMATOCRIT 37.4 % (38.2-49.6); HEMOGLOBIN 12.1 g/dL (14.0-18.0); LYMPHOCYTES # (AUTO) 1.7 (1.0-3.2); LYMPHOCYTES % 13.7 % (18.0-39.1); MEAN CORPUSCULAR HEMOGLOBIN 21.3 pg (28-32); MEAN CORPUSCULAR HGB CONC 32.4 g/dL (31-35); MONOCYTES # (AUTO) 1.1 (0.2-0.8); MONOCYTES % 8.9 % (4.4-11.3); NEUTROPHILS # (AUTO) 9.2 (2.1-6.9); NEUTROPHILS % 76.8 % (38.7-80.0); PLATELET COUNT 292 x10e3/uL (140-360); RED BLOOD COUNT 5.67 x10e6/uL (4.3-5.7); RED CELL DISTRIBUTION WIDTH 16.5 % (11.7-14.4)
[2018-02-02 05:42] LABS: ANION GAP 13.4 mmol/L (8-16); BLOOD UREA NITROGEN 8 mg/dL (7-26); BUN/CREATININE RATIO 8 (6-25); CARBON DIOXIDE 26 mmol/L (22-29); CHLORIDE 104 mmol/L (98-107); CREATININE, SERUM 1.05 mg/dL (0.72-1.25); EST GLOMERULAR FILTRATION RATE > 60 ML/MIN (60-); GLUCOSE 165 mg/dL (74-118); MAGNESIUM 2.3 MG/DL (1.3-2.1); POTASSIUM 3.4 mmol/L (3.5-5.1); SODIUM 140 mmol/L (136-145)
[2018-02-02] MEDS: PIPER-TAZ 3.375 GM 50 ML IV SCH ×3 (06:04→21:29)
[2018-02-02] MEDS: NIFEDIPINE CR 30 MG TAB PO SCH ×2 (06:06→08:43)
[2018-02-02] MEDS: INSULIN REGULAR, HUMAN 100 UNIT/1 ML 3ML VIAL SQ SCH ×4 (07:30→19:33)
[2018-02-02] MEDS: LOSARTAN POTASSIUM 100 MG TAB PO SCH (09:04)
[2018-02-02] MEDS: FLUCONAZOLE 100 MG TAB PO SCH (09:04)
[2018-02-02] MEDS: PANTOPRAZOLE SOD 40 MG TABEC PO SCH (09:04)
[2018-02-02] MEDS: PRAVASTATIN 20 MG TAB PO SCH (20:57)
[2018-02-03] VITALS: BP 127/60
[2018-02-03 04:46] VITALS: BP 132/71
[2018-02-03] MEDS: PIPER-TAZ 3.375 GM 50 ML IV SCH (05:01)
[2018-02-03 05:21] LABS: BASOPHILS % 0.3 % (0.0-1.0); EOSINOPHILS # (AUTO) 0.1 (0.0-0.4); EOSINOPHILS % 0.6 % (0.0-6.0); HEMATOCRIT 35.3 % (38.2-49.6); HEMOGLOBIN 11.5 g/dL (14.0-18.0); LYMPHOCYTES # (AUTO) 1.6 (1.0-3.2); LYMPHOCYTES % 18.5 % (18.0-39.1); MEAN CORPUSCULAR HEMOGLOBIN 21.4 pg (28-32); MEAN CORPUSCULAR HGB CONC 32.6 g/dL (31-35); MEAN CORPUSCULAR VOLUME 65.6 fL (81-99); MONOCYTES # (AUTO) 0.8 (0.2-0.8); MONOCYTES % 9.5 % (4.4-11.3); NEUTROPHILS # (AUTO) 6.2 (2.1-6.9); NEUTROPHILS % 70.8 % (38.7-80.0); PLATELET COUNT 308 x10e3/uL (140-360); RED BLOOD COUNT 5.38 x10e6/uL (4.3-5.7); RED CELL DISTRIBUTION WIDTH 15.8 % (11.7-14.4)
[2018-02-03 05:39] LABS: ANION GAP 12.4 mmol/L (8-16); BLOOD UREA NITROGEN 6 mg/dL (7-26); BUN/CREATININE RATIO 6 (6-25); CALCIUM 8.9 mg/dL (8.4-10.2); CARBON DIOXIDE 26 mmol/L (22-29); CHLORIDE 107 mmol/L (98-107); CREATININE, SERUM 0.99 mg/dL (0.72-1.25); EST GLOMERULAR FILTRATION RATE > 60 ML/MIN (60-); GLUCOSE 147 mg/dL (74-118); MAGNESIUM 2.2 MG/DL (1.3-2.1); POTASSIUM 3.4 mmol/L (3.5-5.1); SODIUM 142 mmol/L (136-145)
[2018-02-03] MEDS ORDERED: FLAGYL500 MG PO (05:59)
[2018-02-03] MEDS ORDERED: TYLENOL WITH C1 EACH PO (05:59)
[2018-02-03] MEDS ORDERED: LEVAQUIN500 MG PO (05:59)
[2018-02-03] MEDS ORDERED: PROTONIX40 MG/ML PO (05:59)
[2018-02-03] MEDS: INSULIN REGULAR, HUMAN 100 UNIT/1 ML 3ML VIAL SQ SCH (07:30)
[2018-02-03] MEDS ORDERED: POTASSIUM CHLORIDE 10MEQ EA PO ONE (07:45)
[2018-02-03 07:52] VITALS: BP 131/70
[2018-02-03] MEDS: PANTOPRAZOLE SOD 40 MG TABEC PO SCH (08:00)
[2018-02-03] MEDS: FLUCONAZOLE 100 MG TAB PO SCH (08:35)
[2018-02-03] MEDS: LOSARTAN POTASSIUM 100 MG TAB PO SCH (08:35)
[2018-02-03] MEDS: NIFEDIPINE CR 30 MG TAB PO SCH (08:35)
[2018-02-03] MEDS ORDERED: ONDANSETRON HCL INJ 2 MG/ML VIAL IV ONE (09:26)
[2018-02-03] MEDS ORDERED: SEVOFLURANE INHAL SOLN 250 ML PEN BTL INH ONE (09:26)
[2018-02-03] MEDS ORDERED: ROCURONIUM BROMIDE 10 MG/ML 5ML VIAL IV ONE (09:26)
[2018-02-03] MEDS ORDERED: PROPOFOL IV EMULSION 10 MG/ML 20 ML VIAL IV ONE (09:26)
[2018-02-03] MEDS ORDERED: DEXAMETHASONE SOD PHOS INJ 4 MG/ML VIAL IV ONE (09:26)
[2018-02-03] MEDS ORDERED: LIDOCAINE HCL 2% LOCAL INJ 5 ML SDV VIAL INJ ONE (09:26)
[2018-02-03] MEDS ORDERED: ACETAMINOPHEN 1000 MG/100 ML IV ONE (09:26)
--- NOTE | 2018-02-04 00:29 | Discharge Summary ---
ADMISSION DIAGNOSES: 1. Appendicolith. 2. Hypertension. 3. Type 2 diabetes. 4. Hyperlipidemia. 5. Leukocytosis. 6. Funguria. 7. Diarrhea. 8. Microcytic anemia. DISCHARGE DIAGNOSES: 1. Appendicolith. 2. Hypertension. 3. Type 2 diabetes. 4. Hyperlipidemia. 5. Leukocytosis. 6. Funguria. 7. Diarrhea. 8. Microcytic anemia. 9. Appendicitis, status post laparoscopic appendectomy. 10. Status post laparoscopic cholecystectomy. 11. Hypokalemia. 12. Ruled out urinary tract infection. 13. Ruled out Clostridium difficile. 14. Gastrointestinal bleed. 15. Hypermagnesemia. HISTORY: Patient has a history of type 2 diabetes, hyperlipidemia, hypertension. SURGICAL HISTORY: Patient has no past surgical history. FAMILY HISTORY: Patient's dad had a stroke. SOCIAL HISTORY: Patient denies tobacco, alcohol, or illicit drug use. HOSPITAL COURSE: [id number] male complains of generalized abdominal pain and nausea that began Sunday morning. The pain is constant and sharp. Pain is worse with movement and improved with antibiotics. He said he had bloody diarrhea this morning. He denies nausea, vomiting, dysuria, hematuria, and fever. On admission, an EKG was done that showed sinus bradycardia with PVCs and possible PACs. Chest x-ray was negative. CT of the abdomen showed appendicolith at the base of the appendix, but no enlargement of the appendix or surrounding inflammatory changes. No acute intra-abdominal or intra-pelvic abnormalities. Moderate cardiomegaly. Surgery was consulted who cleared the patient to go home because the pain had resolved after antibiotics were started. Patient was tolerating the diet well. Patient was initially held because of a UA, UA was positive for yeast, bacteria, blood. Urine culture came back negative. Patient was started on Zosyn at admission, and fluconazole was added due to the yeast in the urine. C. diff came back negative. Stool for blood came back positive. GI was consulted. Patient had an EGD that showed gastritis. Patient was started on Protonix. After the EGD, the abdominal pain came back and worsened, so per surgery patient repeated the CAT scan which showed appendicitis. He was taken into surgery and had his appendix and gallbladder both removed. After the surgery, ID was consulted because patient's WBC remains elevated. Per hematology and hospital, patient was to continue the Zosyn and has been cleared for discharge with 10 more days of Levaquin and Flagyl per ID. Patient will be sent home on those antibiotics plus Protonix and Tylenol No. 3 for pain. He will resume all other home medicines. Patient is tolerating the diet well and pain is very minimal. He had a bowel movement as well. Patient will return to work once cleared by surgery. He will follow up with primary care in 1 to 2 weeks. Patient and understand discharge instructions and agrees to plan. Dictated by Majo Dejesus NP SARAH RIVERS MD Job#: [id number]
== END 2018-02-03 09:27 | disposition home or self-care (01) ==
LOC: ER 10:03 → ERHOLD 18:46 → IMCU 20:31
PROVIDERS: ADMIT Internal Medicine; ATTEND Internal Medicine
DX: K35.80 Unspecified acute appendicitis (principal); I10 Essential (primary) hypertension; E11.9 Type 2 diabetes mellitus without complications; E78.5 Hyperlipidemia, unspecified; I35.1 Nonrheumatic aortic (valve) insufficiency; Z82.3 Family history of stroke; B48.8 Other specified mycoses; D72.829 Elevated white blood cell count, unspecified; R19.7 Diarrhea, unspecified; D50.9 Iron deficiency anemia, unspecified; K20.9 Esophagitis, unspecified; K29.70 Gastritis, unspecified, without bleeding; K80.00 Calculus of gallbladder with acute cholecystitis without obstruction; D64.9 Anemia, unspecified; E83.41 Hypermagnesemia; K29.50 Unspecified chronic gastritis without bleeding
CPT/HCPCS: 36415 ×6; 43239; 44970; 47562; 71045; 74177 ×2; 80048 ×5; 80053; 81001; 82150; 82270; 82550; 82553; 82607; 82728; 82746; 82948 ×6; 83036; 83540; 83690; 83735 ×5; 83880; 84466; 84484; 85025 ×6; 85610; 85730; 87040; 87086; 87493; 88304; 88305; 88312; 93005; 99284; G0378 ×6; J0131; J1100; J1450; J2001; J2250 ×2; J2270 ×2; J2405 ×2; J2543 ×6; J2704 ×2; J7030 ×2; J7050; J7121 ×2; Q9967 ×2; S0164 ×3